=== PATIENT | male | born 1985 | race Caucasian/White ===

== ENCOUNTER 2016-08-02 10:02 | Emergency (ER) | payer SELFPAY ==
[~2016-08-02] VITALS: Ht 193 cm; Wt 100.0 kg
[2016-08-02 10:42] VITALS: BP 130/83
[2016-08-02] MEDS ORDERED: ALBUTEROL SULFATE 2.5 MG/3 ML ONE (10:58)
[2016-08-02] MEDS ORDERED: ALBUTEROL SULFATE 2.5 MG/3 ML NPPB ONE (11:00)
== END 2016-08-02 11:46 | disposition home or self-care (01) ==
LOC: ED 11:30
DX: J20.5 Acute bronchitis due to respiratory syncytial virus (principal); B36.0 Pityriasis versicolor
CPT/HCPCS: 71020; 94640; 99284; J7613

== ENCOUNTER 2017-05-17 07:42 | Emergency (ER) | payer OTHER ==
[~2017-05-17] VITALS: Ht 193 cm; Wt 100.3 kg
[2017-05-17] MEDS ORDERED: FAMOTIDINE 20 MG/2 ML ONE (08:17)
[2017-05-17] MEDS ORDERED: MAALOX/HYOSCYAMINE/LIDOCAINE 45 ML BTL ONE (08:17)
[2017-05-17 08:26] LABS: BASOPHILS # (AUTO) 0.03 x10^3/uL (0-0.1); BASOPHILS % (AUTO) 1 % (0-1); EOSINOPHILS % (AUTO) 14 % (1-7); LYMPHOCYTES % (AUTO) 24 % (22-44); MD NO; MEAN CORPUSCULAR HEMOGLOBIN 34.7 pg (27.5-34.5); MEAN CORPUSCULAR HGB CONC 34.4 g/dL (33.2-36.2); MEAN CORPUSCULAR VOLUME 100.6 fL (81-97); MEAN PLATELET VOLUME 8.8 fL (7.4-10.4); MONOCYTES # (AUTO) 0.48 x10^3/uL (0.2-0.8); MONOCYTES % (AUTO) 7 % (2-9); NEUTROPHILS # (AUTO) 3.56 x10^3/uL (1.8-6.8); NEUTROPHILS % (AUTO) 54 % (42-75); PLATELET COUNT 153 x10^3/uL (130-400); RED BLOOD COUNT 4.48 x10^6/uL (4.38-5.82); RED CELL DISTRIBUTION WIDTH 14.3 % (9.4-14.8)
[2017-05-17] MEDS ORDERED: FAMOTIDINE 20 MG/2 ML IVP ONE (08:30)
[2017-05-17] MEDS ORDERED: SODIUM CHLORIDE 0.9% 1,000ML IVBOLUS ONE (08:30)
[2017-05-17] MEDS ORDERED: MAALOX/HYOSCYAMINE/LIDOCAINE 45 ML BTL PO ONE (08:30)
[2017-05-17] MEDS ORDERED: SODIUM CHLORIDE FLUSH 10ML SYR IVF ONE (08:30)
[2017-05-17 08:37] LABS: ALANINE AMINOTRANSFERASE 21 U/L (12-78); ALBUMIN 3.2 g/dL (3.4-5.0); ANION GAP 5 mmol/L (5-15); CALCIUM 8.1 mg/dL (8.5-10.1); CHLORIDE 111 mmol/L (98-107)
[2017-05-17 08:40] LABS: ALKALINE PHOSPHATASE 66 U/L (45-117); CREATININE 0.68 mg/dL (0.7-1.3); TOTAL PROTEIN 6.2 g/dL (6.4-8.2)
[2017-05-17 09:54] LABS: MICROSCOPIC NOT IND
[2017-05-17 09:58] LABS: CULTURE INDICATED? NO
[2017-05-17 10:42] VITALS: BP 122/66
== END 2017-05-17 10:44 | disposition home or self-care (01) ==
LOC: ED 09:07
DX: R10.11 Right upper quadrant pain (principal)
CPT/HCPCS: 36415; 76700; 80053; 81003; 83690; 85025; 96361; 96374; 99285; J7030; S0028

== ENCOUNTER 2018-02-28 09:26 | Emergency (ER) | payer OTHER ==
[~2018-02-28] VITALS: Ht 193 cm; Wt 99.4 kg
[2018-02-28 09:28] VITALS: BP 122/82
[2018-02-28] MEDS ORDERED: KETOROLAC 30 MG/1 ML ONE (09:40)
[2018-02-28] MEDS ORDERED: KETOROLAC 30 MG/1 ML IM ONE (10:00)
== END 2018-02-28 11:02 | disposition home or self-care (01) ==
LOC: ED 10:56
DX: S29.012A Strain of muscle and tendon of back wall of thorax, initial encounter (principal); V44.5XXA Car driver injured in collision with heavy transport vehicle or bus in traffic accident, initial encounter; Y93.89 Activity, other specified; Y92.89 Other specified places as the place of occurrence of the external cause; Y99.8 Other external cause status
CPT/HCPCS: 72072; 96372; 99284; J1885

== ENCOUNTER 2018-12-05 23:29 | Emergency (ER) | payer SELFPAY ==
[~2018-12-05] VITALS: Ht 193 cm; Wt 107.0 kg
[2018-12-06 00:16] VITALS: BP 130/70
== END 2018-12-06 00:19 | disposition home or self-care (01) ==
LOC: ED 23:55
DX: N34.2 Other urethritis (principal); A63.0 Anogenital (venereal) warts; B35.4 Tinea corporis; F17.200 Nicotine dependence, unspecified, uncomplicated
CPT/HCPCS: 96372; 99283; J0696

== ENCOUNTER 2020-07-16 15:48 | Emergency (ER) | payer SELFPAY ==
[~2020-07-16] VITALS: Ht 193 cm; Wt 119.5 kg
[2020-07-16 17:38] LABS: BASOPHILS % (AUTO) 1 % (0-1); EOSINOPHILS % (AUTO) 1 % (1-7); LYMPHOCYTES % (AUTO) 25 % (22-44); MD NO; MEAN CORPUSCULAR HEMOGLOBIN 35.1 pg (27.5-34.5); MEAN CORPUSCULAR HGB CONC 35.4 g/dL (33.2-36.2); MEAN PLATELET VOLUME 8.4 fL (7.4-10.4); MONOCYTES % (AUTO) 10 % (2-9); NEUTROPHILS % (AUTO) 63 % (42-75); PLATELET COUNT 147 x10^3/uL (130-400); RED CELL DISTRIBUTION WIDTH 13.7 % (9.4-14.8)
[2020-07-16 17:45] LABS: ALANINE AMINOTRANSFERASE 22 U/L (12-78); ALBUMIN 3.1 g/dL (3.4-5.0); ANION GAP 5 mmol/L (5-15); CALCIUM 8.2 mg/dL (8.5-10.1); CHLORIDE 110 mmol/L (98-107); CREATININE 0.71 mg/dL (0.7-1.3)
[2020-07-16 17:46] VITALS: BP 132/72
--- NOTE | 2020-07-16 17:46 | NUR ---
pt in bed with no signs or symptoms of acute distress noted respiraitons even and unlabored denies pain or discomfort at this time, states he ate a sandwich [employer] and hasnt felt nasueated or pain from that meal. denies need at this time. call light within reach
[2020-07-16 17:48] LABS: ALKALINE PHOSPHATASE 65 U/L (45-117); BILIRUBIN,TOTAL 1.1 mg/dL (0.2-1.0); TOTAL PROTEIN 6.2 g/dL (6.4-8.2)
== END 2020-07-16 18:49 | disposition home or self-care (01) ==
LOC: ED 18:22
DX: K29.00 Acute gastritis without bleeding (principal); R10.10 Upper abdominal pain, unspecified; R11.2 Nausea with vomiting, unspecified
CPT/HCPCS: 36415; 71045; 80053; 83690; 85025; 99284